=== PATIENT | male | born 1950 | race Caucasian/White ===

== ENCOUNTER 2019-01-11 11:18 | Outpatient (CLI) | payer OTHER, MEDICAID ==
[2019-01-11 12:26] LABS: BASOPHILS # (AUTO) 0.1 K/uL (0.0-0.2); MEAN CORPUSCULAR HEMOGLOBIN 30 pg (27-31); MONOCYTES # (AUTO) 0.4 K/uL (0.0-1.0); NEUTROPHILS # (AUTO) 3.3 K/uL (1.8-7.7)
[2019-01-11 12:41] LABS: BILIRUBIN,URINE NEGATIVE (NEGATIVE); CLARITY/URINE CLEAR (CLEAR); COLOR,URINE YELLOW (YELLOW); GLUCOSE,URINE NEGATIVE (NEGATIVE); KETONES,URINE NEGATIVE (NEGATIVE); LEUKOCYTE ESTERASE ,URINE NEGATIVE (NEGATIVE); NITRITE, URINE NEGATIVE (NEGATIVE); PROTEIN URINE NEGATIVE (NEGATIVE); UROBILINOGEN,URINE 0.2 (0.2-1.0)
[2019-01-11 12:48] LABS: BASOPHILS % (AUTO) 1.8 % (0.0-2.0); EOSINOPHILS # (AUTO) 0.6 K/uL (0.0-0.4); EOSINOPHILS % (AUTO) 8.3 % (0.0-4.0); HEMATOCRIT 38.5 % (36-54); HEMOGLOBIN 12.7 g/dL (14.0-18.0); LYMPHOCYTES # (AUTO) 2.4 K/uL (1.0-5.5); LYMPHOCYTES % (AUTO) 35.7 % (20.5-51.5); MEAN CORPUSCULAR HGB CONC 33 % (32-36); MEAN CORPUSCULAR VOLUME 90 fL (79.0-98.0); MONOCYTES % (AUTO) 6.1 % (1.7-9.3); NEUTROPHILS % (AUTO) 48.1 % (40.0-70.0); PLATELET COUNT (AUTO) 281 K/uL (130-430); RED BLOOD CELL COUNT(AUTO) 4.28 MIL/uL (4.2-6.2); RED CELL DISTRIBUTION WIDTH 14.1 % (9.0-15.0); WHITE BLOOD COUNT (AUTO) 6.8 K/uL (4.8-10.8)
[2019-01-11 12:51] LABS: BLOOD, URINE TRACE (NEGATIVE)
[2019-01-11 12:53] LABS: BACTERIA,URINE None Seen /HPF (None Seen); WBC,URINE 0-3 /HPF (0-3)
[2019-01-11 13:00] LABS: ALBUMIN 3.9 g/dL (3.4-4.8); CALCIUM 9.3 mg/dL (8.4-11.0); CREATININE 1.13 mg/dL (0.55-1.30); POTASSIUM 4.9 mmol/L (3.5-5.1); THYROID STIMULATING HORMONE 1.16 uIu/mL (0.34-4.82); TOTAL BILIRUBIN 0.5 mg/dL (0.0-1.0)
[2019-01-13 14:34] LABS: HEMOGLOBIN A1C 5.7 % (4.8-5.6)
== END 2019-01-11 20:38 | disposition home or self-care (01) ==
LOC: SLB 11:18
PROVIDERS: ATTEND Internal Medicine
DX: I11.9 Hypertensive heart disease without heart failure (principal); J44.9 Chronic obstructive pulmonary disease, unspecified; E55.9 Vitamin D deficiency, unspecified; Z79.899 Other long term (current) drug therapy; R97.20 Elevated prostate specific antigen [PSA]
CPT/HCPCS: 36415; 71046-TC; 80053; 80061; 81000-TC; 82306; 82607; 83036; 84153; 84443-TC; 85025; 93005; 93306

== ENCOUNTER 2019-01-12 12:42 | Outpatient (CLI) | payer OTHER, MEDICAID | END 2019-01-12 21:14 | disposition home or self-care (01) | LOC: SUS 12:42 | PROVIDERS: ATTEND Internal Medicine | DX: I73.9 Peripheral vascular disease, unspecified (principal) | CPT/HCPCS: 93923 ==

== ENCOUNTER 2019-02-22 11:22 | Outpatient (CLI) | payer OTHER, MEDICAID | END 2019-02-22 21:18 | disposition home or self-care (01) | LOC: SUS 11:22 | PROVIDERS: ATTEND Urology | DX: N43.2 Other hydrocele (principal); N50.3 Cyst of epididymis; N44.2 Benign cyst of testis; N40.1 Benign prostatic hyperplasia with lower urinary tract symptoms | CPT/HCPCS: 36415; 76870-TC; 84153; 87086 ==

== ENCOUNTER 2019-03-09 08:59 | Day surgery (SDC) | payer OTHER, MEDICAID ==
[2019-03-08 10:45] LABS: BASOPHILS % (AUTO) 0.2 % (0.0-2.0); EOSINOPHILS # (AUTO) 0.7 K/uL (0.0-0.4); EOSINOPHILS % (AUTO) 11.5 % (0.0-4.0); HEMATOCRIT 37.2 % (36-54); HEMOGLOBIN 12.6 g/dL (14.0-18.0); LYMPHOCYTES # (AUTO) 2.2 K/uL (1.0-5.5); LYMPHOCYTES % (AUTO) 35.9 % (20.5-51.5); MEAN CORPUSCULAR HEMOGLOBIN 30 pg (27-31); MEAN CORPUSCULAR HGB CONC 34 % (32-36); MEAN CORPUSCULAR VOLUME 90 fL (79.0-98.0); MONOCYTES # (AUTO) 0.4 K/uL (0.0-1.0); MONOCYTES % (AUTO) 6.4 % (1.7-9.3); NEUTROPHILS # (AUTO) 2.8 K/uL (1.8-7.7); PLATELET COUNT (AUTO) 276 K/uL (130-430); RED BLOOD CELL COUNT(AUTO) 4.13 MIL/uL (4.2-6.2); RED CELL DISTRIBUTION WIDTH 14.4 % (9.0-15.0); WHITE BLOOD COUNT (AUTO) 6.1 K/uL (4.8-10.8)
[2019-03-08 10:47] LABS: BILIRUBIN,URINE 1+ (NEGATIVE); BLOOD, URINE TRACE (NEGATIVE); CLARITY/URINE CLEAR (CLEAR); COLOR,URINE YELLOW (YELLOW); GLUCOSE,URINE NEGATIVE (NEGATIVE); KETONES,URINE TRACE (NEGATIVE); LEUKOCYTE ESTERASE ,URINE NEGATIVE (NEGATIVE); NITRITE, URINE NEGATIVE (NEGATIVE); PH,URINE 5.5 (5.0-8.0); PROTEIN URINE NEGATIVE (NEGATIVE); UROBILINOGEN,URINE 0.2 (0.2-1.0)
[2019-03-08 10:52] LABS: BACTERIA,URINE FEW /HPF (None Seen)
[2019-03-08 10:53] LABS: COARSE GRANULAR CASTS,URINE 0-10 /LPF (None Seen); HYALINE CASTS, URINE 0-10 /LPF (None Seen)
[2019-03-08 11:04] LABS: PROTHROMBIN TIME 9.9 SECS (9.5-12.5)
[2019-03-08 11:06] LABS: ALBUMIN 3.8 g/dL (3.4-4.8); CALCIUM 8.5 mg/dL (8.4-11.0); CREATININE 1.24 mg/dL (0.55-1.30); POTASSIUM 4.4 mmol/L (3.5-5.1); TOTAL BILIRUBIN 0.4 mg/dL (0.0-1.0)
[~2019-03-09] VITALS: Ht 175.3 cm; Wt 64.4 kg
[2019-03-09] MEDS ORDERED: BUPIVACAINE /PF 0.5% 30 ML VIAL INJ ONE (09:00)
[2019-03-09] MEDS ORDERED: LevALBUTEROL HCL 1.25 MG/0.5 ML *CONC.* VIAL.NEB (XOPENEX CONC.) INH ONE ×2 (09:45→10:18)
--- NOTE | 2019-03-09 10:05 | NUR ---
RT NOTES Pt. refused HHN tx despite education provided, HELDER Rm made aware, RN notified Dr Martinez.
[2019-03-09 12:36] VITALS: BP_SYST 143
== END 2019-03-09 12:30 | disposition home or self-care (01) ==
LOC: SDS 08:59 → SMU 09:00 → SDS 12:30
PROVIDERS: ATTEND Orthopaedic Surgery
DX: L72.0 Epidermal cyst (principal); L85.8 Other specified epidermal thickening; F17.200 Nicotine dependence, unspecified, uncomplicated; Z98.890 Other specified postprocedural states; Z79.01 Long term (current) use of anticoagulants; Z79.899 Other long term (current) drug therapy
CPT/HCPCS: 11421; 36415; 80053; 81000; 85025; 85610; 85730; 88305; J3490; J7612; 88304

== ENCOUNTER 2019-03-11 15:10 | Outpatient (CLI) | payer OTHER, MEDICAID | END 2019-03-11 21:05 | disposition home or self-care (01) | LOC: SCT 15:10 | PROVIDERS: ATTEND Internal Medicine | DX: R91.8 Other nonspecific abnormal finding of lung field (principal) | CPT/HCPCS: 71250-TC ==

== ENCOUNTER 2019-03-26 10:57 | Outpatient (CLI) | payer OTHER, MEDICAID | END 2019-03-26 14:00 | disposition home or self-care (01) | LOC: SRD 10:57 | PROVIDERS: ATTEND Internal Medicine | DX: Z09 Encounter for follow-up examination after completed treatment for conditions other than malignant neoplasm (principal); J18.9 Pneumonia, unspecified organism; J92.9 Pleural plaque without asbestos | CPT/HCPCS: 71046-TC ==

== ENCOUNTER 2020-09-05 09:59 | Outpatient (CLI) | payer OTHER, MEDICAID ==
[2020-09-05 10:46] LABS: BASOPHILS # (AUTO) 0.1 K/uL (0.0-0.2); EOSINOPHILS # (AUTO) 0.4 K/uL (0.0-0.4); EOSINOPHILS % (AUTO) 6.4 % (0.0-4.0); HEMATOCRIT 31.3 % (36-54); HEMOGLOBIN 10.3 g/dL (14.0-18.0); LYMPHOCYTES # (AUTO) 2.4 K/uL (1.0-5.5); LYMPHOCYTES % (AUTO) 42.2 % (20.5-51.5); MEAN CORPUSCULAR HEMOGLOBIN 27 pg (27-31); MEAN CORPUSCULAR HGB CONC 33 % (32-36); MEAN CORPUSCULAR VOLUME 82 fL (79.0-98.0); MONOCYTES # (AUTO) 0.4 K/uL (0.0-1.0); MONOCYTES % (AUTO) 7.7 % (1.7-9.3); NEUTROPHILS # (AUTO) 2.4 K/uL (1.8-7.7); NEUTROPHILS % (AUTO) 41.7 % (40.0-70.0); PLATELET COUNT (AUTO) 257 K/uL (130-430); RED BLOOD CELL COUNT(AUTO) 3.81 MIL/uL (4.2-6.2); RED CELL DISTRIBUTION WIDTH 14.9 % (9.0-15.0); WHITE BLOOD COUNT (AUTO) 5.7 K/uL (4.8-10.8)
[2020-09-05 11:22] LABS: ALANINE AMINOTRANSFERASE 32 U/L (12-78); ALBUMIN 3.8 g/dL (3.4-4.8); ANION GAP 4 (5-15); ASPARTATE AMINOTRANSFERASE 35 U/L (10-37); CALCIUM 8.8 mg/dL (8.4-11.0); CHLORIDE 105 mmol/L (98-107); CREATININE 1.05 mg/dL (0.55-1.30); GLUCOSE 94 mg/dL (70-99); POTASSIUM 4.7 mmol/L (3.5-5.1); SODIUM SERUM 140 mmol/L (136-145); THYROID STIMULATING HORMONE 2.49 uIu/mL (0.36-3.74); TOTAL BILIRUBIN 0.3 mg/dL (0.0-1.0); UREA NITROGEN, BLOOD 14 mg/dL (8-21)
[2020-09-05 11:38] LABS: BILIRUBIN,URINE NEGATIVE (NEGATIVE); CLARITY/URINE CLEAR (CLEAR); COLOR,URINE YELLOW (YELLOW); GLUCOSE,URINE NEGATIVE (NEGATIVE); KETONES,URINE NEGATIVE (NEGATIVE); LEUKOCYTE ESTERASE ,URINE NEGATIVE (NEGATIVE); NITRITE, URINE NEGATIVE (NEGATIVE); PROTEIN URINE NEGATIVE (NEGATIVE); UROBILINOGEN,URINE 0.2 (0.2-1.0)
[2020-09-05 11:39] LABS: BLOOD, URINE TRACE (NEGATIVE)
[2020-09-05 11:54] LABS: WBC,URINE 0-3 /HPF (0-3)
[2020-09-05 11:55] LABS: BACTERIA,URINE FEW /HPF (None Seen)
[2020-09-05 12:42] LABS: CHOLESTEROL 160 mg/dL (<200); HDL CHOLESTEROL 44 mg/dL (>45); LDL CHOLESTEROL 100 mg/dL (<100); TRIGLYCERIDES 105 mg/dL (30-150)
[2020-09-06 05:12] LABS: HEMOGLOBIN A1C 5.6 % (4.8-5.6)
== END 2020-09-05 20:54 | disposition home or self-care (01) ==
LOC: SLB 09:59
PROVIDERS: ATTEND Internal Medicine
DX: E55.9 Vitamin D deficiency, unspecified (principal); R73.9 Hyperglycemia, unspecified; I10 Essential (primary) hypertension; E56.9 Vitamin deficiency, unspecified; I70.90 Unspecified atherosclerosis; E78.5 Hyperlipidemia, unspecified; J44.9 Chronic obstructive pulmonary disease, unspecified; N40.1 Benign prostatic hyperplasia with lower urinary tract symptoms
CPT/HCPCS: 36415; 80053; 80061; 81000-TC; 82306; 82607; 83036; 84443-TC; 85025

== ENCOUNTER 2020-12-20 08:49 | Outpatient (CLI) | payer OTHER ==
[2020-12-20 09:21] LABS: BASOPHILS # (AUTO) 0.1 K/uL (0.0-0.2); BASOPHILS % (AUTO) 1.7 % (0.0-2.0); EOSINOPHILS # (AUTO) 0.5 K/uL (0.0-0.4); EOSINOPHILS % (AUTO) 7.6 % (0.0-4.0); HEMATOCRIT 34.3 % (36-54); HEMOGLOBIN 11.5 g/dL (14.0-18.0); LYMPHOCYTES # (AUTO) 2.8 K/uL (1.0-5.5); LYMPHOCYTES % (AUTO) 42.9 % (20.5-51.5); MEAN CORPUSCULAR HEMOGLOBIN 28 pg (27-31); MEAN CORPUSCULAR HGB CONC 34 % (32-36); MEAN CORPUSCULAR VOLUME 83 fL (79.0-98.0); MONOCYTES # (AUTO) 0.4 K/uL (0.0-1.0); MONOCYTES % (AUTO) 6.4 % (1.7-9.3); NEUTROPHILS # (AUTO) 2.7 K/uL (1.8-7.7); NEUTROPHILS % (AUTO) 41.4 % (40.0-70.0); PLATELET COUNT (AUTO) 262 K/uL (130-430); RED BLOOD CELL COUNT(AUTO) 4.12 MIL/uL (4.2-6.2); RED CELL DISTRIBUTION WIDTH 16.4 % (9.0-15.0); WHITE BLOOD COUNT (AUTO) 6.6 K/uL (4.8-10.8)
[2020-12-20 09:39] LABS: ANION GAP 6 (5-15); CALCIUM 8.6 mg/dL (8.4-11.0); CHLORIDE 109 mmol/L (98-107); CREATININE 1.18 mg/dL (0.55-1.30); GLUCOSE 90 mg/dL (70-99); POTASSIUM 4.3 mmol/L (3.5-5.1); SODIUM SERUM 145 mmol/L (136-145); UREA NITROGEN, BLOOD 17 mg/dL (8-21)
== END 2020-12-20 20:32 | disposition home or self-care (01) ==
LOC: SLB 08:49
PROVIDERS: ATTEND Internal Medicine
DX: K92.2 Gastrointestinal hemorrhage, unspecified (principal); D64.9 Anemia, unspecified
CPT/HCPCS: 36415; 80048; 85025

== ENCOUNTER 2021-08-05 11:17 | Outpatient (CLI) | payer OTHER, MEDICAID ==
[2021-08-05 12:44] LABS: BASOPHILS # (AUTO) 0.1 K/uL (0.0-0.2); BASOPHILS % (AUTO) 1.2 % (0.0-2.0); EOSINOPHILS # (AUTO) 0.2 K/uL (0.0-0.4); EOSINOPHILS % (AUTO) 4.7 % (0.0-4.0); HEMATOCRIT 37.6 % (36-54); HEMOGLOBIN 12.5 g/dL (14.0-18.0); LYMPHOCYTES # (AUTO) 2.1 K/uL (1.0-5.5); LYMPHOCYTES % (AUTO) 43.7 % (20.5-51.5); MEAN CORPUSCULAR HEMOGLOBIN 30 pg (27-31); MEAN CORPUSCULAR HGB CONC 33 % (32-36); MEAN CORPUSCULAR VOLUME 89 fL (79.0-98.0); MONOCYTES # (AUTO) 0.3 K/uL (0.0-1.0); MONOCYTES % (AUTO) 5.8 % (1.7-9.3); NEUTROPHILS # (AUTO) 2.2 K/uL (1.8-7.7); NEUTROPHILS % (AUTO) 44.6 % (40.0-70.0); PLATELET COUNT (AUTO) 241 K/uL (130-430); RED BLOOD CELL COUNT(AUTO) 4.23 MIL/uL (4.2-6.2); WHITE BLOOD COUNT (AUTO) 4.9 K/uL (4.8-10.8)
[2021-08-05 12:46] LABS: BILIRUBIN,URINE NEGATIVE (NEGATIVE); CLARITY/URINE CLEAR (CLEAR); COLOR,URINE YELLOW (YELLOW); GLUCOSE,URINE NEGATIVE (NEGATIVE); KETONES,URINE NEGATIVE (NEGATIVE); LEUKOCYTE ESTERASE ,URINE NEGATIVE (NEGATIVE); NITRITE, URINE NEGATIVE (NEGATIVE); PROTEIN URINE NEGATIVE (NEGATIVE); UROBILINOGEN,URINE 0.2 (0.2-1.0)
[2021-08-05 12:48] LABS: BLOOD, URINE TRACE (NEGATIVE)
[2021-08-05 12:55] LABS: BACTERIA,URINE RARE /HPF (None Seen); WBC,URINE NONE SEEN /HPF (0-3)
[2021-08-05 13:14] LABS: CHOLESTEROL 149 mg/dL (<200); HDL CHOLESTEROL 50 mg/dL (>45); LDL CHOLESTEROL 78 mg/dL (<100); TRIGLYCERIDES 61 mg/dL (30-150)
[2021-08-05 13:16] LABS: ALANINE AMINOTRANSFERASE 29 U/L (12-78); ALBUMIN 3.8 g/dL (3.4-4.8); ANION GAP 5 (5-15); ASPARTATE AMINOTRANSFERASE 28 U/L (10-37); CALCIUM 8.7 mg/dL (8.4-11.0); CHLORIDE 104 mmol/L (98-107); CREATININE 0.98 mg/dL (0.55-1.30); GLUCOSE 103 mg/dL (70-99); POTASSIUM 5.3 mmol/L (3.5-5.1); SODIUM SERUM 139 mmol/L (136-145); THYROID STIMULATING HORMONE 2.14 uIu/mL (0.36-3.74); TOTAL BILIRUBIN 0.4 mg/dL (0.0-1.0); UREA NITROGEN, BLOOD 15 mg/dL (8-21)
[2021-08-05 13:36] LABS: ERYTHROCYTE SEDIMENTATION RATE 9 MM/HR (0-15)
[2021-08-06 04:06] LABS: HEMOGLOBIN A1C 5.5 % (4.8-5.6)
[2021-08-06 08:06] LABS: PROSTATE SPECIFIC AG 2.5 ng/mL (0.0-4.0)
== END 2021-08-05 20:10 | disposition home or self-care (01) ==
LOC: SLB 11:17
PROVIDERS: ATTEND Internal Medicine
DX: I10 Essential (primary) hypertension (principal); E78.5 Hyperlipidemia, unspecified; G89.4 Chronic pain syndrome; N40.1 Benign prostatic hyperplasia with lower urinary tract symptoms; D64.9 Anemia, unspecified; J43.9 Emphysema, unspecified; Z79.899 Other long term (current) drug therapy
CPT/HCPCS: 36415; 80053; 80061; 81000; 82306; 82607; 83036; 83540; 83735; 84153; 84443; 85025; 85651-TC

== ENCOUNTER 2021-08-06 09:55 | Outpatient (CLI) | payer OTHER, MEDICAID | END 2021-08-06 20:13 | disposition home or self-care (01) | LOC: SCT 09:55 | PROVIDERS: ATTEND Internal Medicine | DX: I34.0 Nonrheumatic mitral (valve) insufficiency (principal); I51.7 Cardiomegaly; R94.31 Abnormal electrocardiogram [ECG] [EKG]; I77.810 Thoracic aortic ectasia; I70.90 Unspecified atherosclerosis; M47.814 Spondylosis without myelopathy or radiculopathy, thoracic region | CPT/HCPCS: 71250-TC; 76376; 93005; 93306 ==

== ENCOUNTER 2021-11-11 10:56 | Outpatient (CLI) | payer OTHER ==
[2021-11-11 12:11] LABS: ANION GAP 9 (5-15); CALCIUM 9.3 mg/dL (8.4-11.0); CHLORIDE 103 mmol/L (98-107); CREATININE 1.17 mg/dL (0.55-1.30); GLUCOSE 94 mg/dL (70-99); POTASSIUM 4.7 mmol/L (3.5-5.1); SODIUM SERUM 140 mmol/L (136-145); UREA NITROGEN, BLOOD 15 mg/dL (8-21)
== END 2021-11-11 21:15 | disposition home or self-care (01) ==
LOC: SLB 10:56
DX: N40.1 Benign prostatic hyperplasia with lower urinary tract symptoms (principal); R31.29 Other microscopic hematuria
CPT/HCPCS: 36415; 80048; 84153

== ENCOUNTER 2021-11-12 09:59 | Outpatient (CLI) | payer OTHER | END 2021-11-12 20:11 | disposition home or self-care (01) | LOC: SCT 09:59 | PROVIDERS: ATTEND Urology | DX: N28.1 Cyst of kidney, acquired (principal); N40.1 Benign prostatic hyperplasia with lower urinary tract symptoms; N32.89 Other specified disorders of bladder; M47.819 Spondylosis without myelopathy or radiculopathy, site unspecified; I70.90 Unspecified atherosclerosis; R31.29 Other microscopic hematuria | CPT/HCPCS: 74178; 76376; Q9967 ==

== ENCOUNTER 2022-04-07 12:16 | Outpatient (CLI) | payer OTHER ==
[2022-04-07 13:01] LABS: BASOPHILS # (AUTO) 0.1 K/uL (0.0-0.2); BASOPHILS % (AUTO) 1.2 % (0.0-2.0); EOSINOPHILS # (AUTO) 0.4 K/uL (0.0-0.4); EOSINOPHILS % (AUTO) 5.3 % (0.0-4.0); HEMATOCRIT 37.1 % (36-54); LYMPHOCYTES % (AUTO) 28.1 % (20.5-51.5); MEAN CORPUSCULAR VOLUME 88 fL (79.0-98.0); MONOCYTES # (AUTO) 0.4 K/uL (0.0-1.0); MONOCYTES % (AUTO) 6.1 % (1.7-9.3); NEUTROPHILS # (AUTO) 4.1 K/uL (1.8-7.7); NEUTROPHILS % (AUTO) 59.3 % (40.0-70.0); PLATELET COUNT (AUTO) 255 K/uL (130-430); RED CELL DISTRIBUTION WIDTH 13.5 % (9.0-15.0); WHITE BLOOD COUNT (AUTO) 6.9 K/uL (4.8-10.8)
[2022-04-07 13:36] LABS: ALANINE AMINOTRANSFERASE 33 U/L (12-78); ALBUMIN 3.8 g/dL (3.4-4.8); ANION GAP 3 (5-15); ASPARTATE AMINOTRANSFERASE 36 U/L (10-37); CALCIUM 9.3 mg/dL (8.4-11.0); CHLORIDE 102 mmol/L (98-107); GLUCOSE 104 mg/dL (70-99); POTASSIUM 4.6 mmol/L (3.5-5.1); SODIUM SERUM 139 mmol/L (136-145); THYROID STIMULATING HORMONE 2.43 uIu/mL (0.36-3.74); TOTAL BILIRUBIN 0.7 mg/dL (0.0-1.0); UREA NITROGEN, BLOOD 16 mg/dL (8-21)
[2022-04-07 14:30] LABS: CHOLESTEROL 150 mg/dL (<200); HDL CHOLESTEROL 54 mg/dL (>45); LDL CHOLESTEROL 89 mg/dL (<100); TRIGLYCERIDES 80 mg/dL (30-150)
[2022-04-08 06:06] LABS: HEMOGLOBIN A1C 5.5 % (4.8-5.6)
== END 2022-04-07 18:38 | disposition home or self-care (01) ==
LOC: SLB 12:16
PROVIDERS: ATTEND Internal Medicine
DX: I10 Essential (primary) hypertension (principal); E78.5 Hyperlipidemia, unspecified; N40.1 Benign prostatic hyperplasia with lower urinary tract symptoms; D64.9 Anemia, unspecified; R73.9 Hyperglycemia, unspecified; E55.9 Vitamin D deficiency, unspecified; E56.9 Vitamin deficiency, unspecified
CPT/HCPCS: 36415; 80053; 80061; 82306; 82607; 83036; 84443; 85025

== ENCOUNTER → 2023-02-10 | Outpatient (CLI) | payer OTHER, MEDICAID ==
[2023-02-10 10:54] LABS: ERYTHROCYTE SEDIMENTATION RATE 8 MM/HR (0-15)
[2023-02-10 10:57] LABS: BASOPHILS # (AUTO) 0.1 K/uL (0.0-0.2); BASOPHILS % (AUTO) 1.6 % (0.0-2.0); EOSINOPHILS # (AUTO) 0.4 K/uL (0.0-0.4); EOSINOPHILS % (AUTO) 7.9 % (0.0-4.0); HEMATOCRIT 38.6 % (36-54); HEMOGLOBIN 12.8 g/dL (14.0-18.0); LYMPHOCYTES # (AUTO) 2.3 K/uL (1.0-5.5); LYMPHOCYTES % (AUTO) 44.1 % (20.5-51.5); MEAN CORPUSCULAR HEMOGLOBIN 29 pg (27-31); MEAN CORPUSCULAR HGB CONC 33 % (32-36); MEAN CORPUSCULAR VOLUME 88 fL (79.0-98.0); MONOCYTES # (AUTO) 0.3 K/uL (0.0-1.0); MONOCYTES % (AUTO) 5.8 % (1.7-9.3); NEUTROPHILS # (AUTO) 2.1 K/uL (1.8-7.7); NEUTROPHILS % (AUTO) 40.6 % (40.0-70.0); PLATELET COUNT (AUTO) 312 K/uL (130-430); RED BLOOD CELL COUNT(AUTO) 4.39 MIL/uL (4.2-6.2); RED CELL DISTRIBUTION WIDTH 14.4 % (9.0-15.0); WHITE BLOOD COUNT (AUTO) 5.2 K/uL (4.8-10.8)
[2023-02-10 11:02] LABS: BLOOD, URINE NEGATIVE (NEGATIVE); COLOR,URINE YELLOW (YELLOW); GLUCOSE,URINE NEGATIVE (NEGATIVE); KETONES,URINE 1+ (NEGATIVE); LEUKOCYTE ESTERASE ,URINE NEGATIVE (NEGATIVE); NITRITE, URINE NEGATIVE (NEGATIVE); PH,URINE 6.5 (5.0-8.0); PROTEIN URINE TRACE (NEGATIVE)
[2023-02-10 11:08] LABS: BILIRUBIN,URINE NEGATIVE (NEGATIVE); CLARITY/URINE SLIGHTLY HAZY (CLEAR)
[2023-02-10 11:11] LABS: BACTERIA,URINE RARE /HPF (None Seen); RBC,URINE 0-3 /HPF (0-3); WBC,URINE NONE SEEN /HPF (0-3)
[2023-02-10 11:26] LABS: ALANINE AMINOTRANSFERASE 17 U/L (12-78); ALBUMIN 3.8 g/dL (3.4-4.8); ANION GAP 7 (5-15); ASPARTATE AMINOTRANSFERASE 30 U/L (10-37); CALCIUM 8.8 mg/dL (8.4-11.0); CHLORIDE 103 mmol/L (98-107); CHOLESTEROL 153 mg/dL (<200); CREATININE 0.99 mg/dL (0.55-1.30); GLUCOSE 110 mg/dL (74-106); HDL CHOLESTEROL 54 mg/dL (>45); THYROID STIMULATING HORMONE 1.69 uIu/mL (0.34-4.82); TOTAL BILIRUBIN 0.5 mg/dL (0.0-1.0); TRIGLYCERIDES 53 mg/dL (30-150); UREA NITROGEN, BLOOD 18 mg/dL (8-21)
[2023-02-11 11:12] LABS: PROSTATE SPECIFIC AG 0.5 ng/mL (0.0-4.0)
== END | disposition home or self-care (01) ==
LOC: SLB 10:19
PROVIDERS: ATTEND Internal Medicine
DX: R91.1 Solitary pulmonary nodule (principal); I10 Essential (primary) hypertension; E78.5 Hyperlipidemia, unspecified; N40.1 Benign prostatic hyperplasia with lower urinary tract symptoms; E55.9 Vitamin D deficiency, unspecified; R73.9 Hyperglycemia, unspecified; N28.89 Other specified disorders of kidney and ureter; M47.814 Spondylosis without myelopathy or radiculopathy, thoracic region
CPT/HCPCS: 36415; 71250-TC; 76376; 80053; 80061; 81000; 82306; 82607; 83037; 84153; 84443; 85025; 85651-TC

== ENCOUNTER 2023-09-03 10:04 | Outpatient (CLI) | payer OTHER ==
[2023-09-03 11:59] LABS: BILIRUBIN,URINE NEGATIVE (NEGATIVE); BLOOD, URINE NEGATIVE (NEGATIVE); CLARITY/URINE CLEAR (CLEAR); COLOR,URINE YELLOW (YELLOW); GLUCOSE,URINE NEGATIVE (NEGATIVE); KETONES,URINE NEGATIVE (NEGATIVE); LEUKOCYTE ESTERASE ,URINE NEGATIVE (NEGATIVE); NITRITE, URINE NEGATIVE (NEGATIVE); PROTEIN URINE NEGATIVE (NEGATIVE); UROBILINOGEN,URINE 0.2 (0.2-1.0)
[2023-09-03 12:03] LABS: BASOPHILS # (AUTO) 0.1 K/uL (0.0-0.2); BASOPHILS % (AUTO) 1.4 % (0.0-2.0); EOSINOPHILS # (AUTO) 0.2 K/uL (0.0-0.4); EOSINOPHILS % (AUTO) 4.2 % (0.0-4.0); HEMOGLOBIN 13.2 g/dL (14.0-18.0); LYMPHOCYTES # (AUTO) 1.5 K/uL (1.0-5.5); LYMPHOCYTES % (AUTO) 30.2 % (20.5-51.5); MEAN CORPUSCULAR HEMOGLOBIN 31 pg (27-31); MEAN CORPUSCULAR HGB CONC 34 % (32-36); MEAN CORPUSCULAR VOLUME 91 fL (79.0-98.0); MONOCYTES # (AUTO) 0.3 K/uL (0.0-1.0); MONOCYTES % (AUTO) 5.7 % (1.7-9.3); NEUTROPHILS # (AUTO) 2.8 K/uL (1.8-7.7); NEUTROPHILS % (AUTO) 58.5 % (40.0-70.0); PLATELET COUNT (AUTO) 276 K/uL (130-430); RED BLOOD CELL COUNT(AUTO) 4.29 MIL/uL (4.2-6.2); RED CELL DISTRIBUTION WIDTH 13.9 % (9.0-15.0); WHITE BLOOD COUNT (AUTO) 4.9 K/uL (4.8-10.8)
[2023-09-03 12:36] LABS: ALANINE AMINOTRANSFERASE 35 U/L (12-78); ALBUMIN 3.9 g/dL (3.4-4.8); ANION GAP 8 (5-15); ASPARTATE AMINOTRANSFERASE 36 U/L (10-37); CALCIUM 9.1 mg/dL (8.4-11.0); CARBON DIOXIDE 31 mmol/L (23-29); CHLORIDE 104 mmol/L (98-107); CHOLESTEROL 146 mg/dL (<200); GLUCOSE 106 mg/dL (74-106); HDL CHOLESTEROL 62 mg/dL (>45); POTASSIUM 4.5 mmol/L (3.5-5.1); SODIUM SERUM 143 mmol/L (136-145); THYROID STIMULATING HORMONE 1.78 uIu/mL (0.34-4.82); TOTAL BILIRUBIN 0.7 mg/dL (0.0-1.0); TOTAL PROTEIN, SERUM 7.1 g/dL (6.4-8.3); TRIGLYCERIDES 57 mg/dL (30-150); UREA NITROGEN, BLOOD 19 mg/dL (8-21)
[2023-09-03 12:55] LABS: HEMOGLOBIN A1C 5.63 % (<5.7)
== END 2023-09-03 20:44 | disposition home or self-care (01) ==
LOC: SLB 10:04
PROVIDERS: ATTEND Internal Medicine
DX: I10 Essential (primary) hypertension (principal); I70.90 Unspecified atherosclerosis; E78.5 Hyperlipidemia, unspecified; J44.9 Chronic obstructive pulmonary disease, unspecified; D64.9 Anemia, unspecified; N40.1 Benign prostatic hyperplasia with lower urinary tract symptoms; Z79.899 Other long term (current) drug therapy
CPT/HCPCS: 36415; 80053; 80061; 81001; 81003; 82306; 83037; 84153; 84443; 85025

== ENCOUNTER 2023-10-06 10:58 | Outpatient (CLI) | payer OTHER | END 2023-10-06 21:09 | disposition home or self-care (01) | LOC: SCT 10:58 | PROVIDERS: ATTEND Internal Medicine Critical Care Medicine | DX: J92.9 Pleural plaque without asbestos (principal); J44.9 Chronic obstructive pulmonary disease, unspecified; I70.90 Unspecified atherosclerosis | CPT/HCPCS: 71250-TC ==

== ENCOUNTER 2023-12-13 19:59 | Emergency (ER) | payer OTHER ==
[~2023-12-13] VITALS: Ht 180.3 cm; Wt 61.2 kg
[2023-12-13 20:10] VITALS: BP_SYST 140; PULSE 77; RESP 17; TEMP 97.1; O2SAT 96
[2023-12-13 20:23] VITALS: BP_SYST 140; PULSE 77; RESP 17; TEMP 97.1; O2SAT 96
[2023-12-13] MEDS: DIPHTH,PERTUSS(ACELL),TET VAC 0.5 ML VIAL (Tdap) I.M. ONE (20:54)
== END 2023-12-13 20:58 | disposition home or self-care (01) ==
LOC: SED 19:59
DX: S61.412A Laceration without foreign body of left hand, initial encounter (principal); W26.0XXA Contact with knife, initial encounter; Y93.89 Activity, other specified; Y92.89 Other specified places as the place of occurrence of the external cause; Y99.8 Other external cause status
CPT/HCPCS: 90715; 99283

== ENCOUNTER 2024-02-15 09:04 | Outpatient (CLI) | payer OTHER ==
[2024-02-15 09:46] LABS: BASOPHILS # (AUTO) 0.1 K/uL (0.0-0.2); BASOPHILS % (AUTO) 1.3 % (0.0-2.0); EOSINOPHILS # (AUTO) 0.2 K/uL (0.0-0.4); EOSINOPHILS % (AUTO) 4.9 % (0.0-4.0); HEMATOCRIT 38.2 % (36-54); HEMOGLOBIN 12.8 g/dL (14.0-18.0); LYMPHOCYTES # (AUTO) 1.8 K/uL (1.0-5.5); LYMPHOCYTES % (AUTO) 37.4 % (20.5-51.5); MEAN CORPUSCULAR HEMOGLOBIN 30 pg (27-31); MEAN CORPUSCULAR HGB CONC 34 % (32-36); MEAN CORPUSCULAR VOLUME 91 fL (79.0-98.0); MONOCYTES # (AUTO) 0.2 K/uL (0.0-1.0); MONOCYTES % (AUTO) 4.9 % (1.7-9.3); NEUTROPHILS # (AUTO) 2.5 K/uL (1.8-7.7); NEUTROPHILS % (AUTO) 51.5 % (40.0-70.0); PLATELET COUNT (AUTO) 260 K/uL (130-430); RED BLOOD CELL COUNT(AUTO) 4.21 MIL/uL (4.2-6.2); RED CELL DISTRIBUTION WIDTH 13.7 % (9.0-15.0); WHITE BLOOD COUNT (AUTO) 4.8 K/uL (4.8-10.8)
[2024-02-15 10:03] LABS: ERYTHROCYTE SEDIMENTATION RATE 1 MM/HR (0-15)
[2024-02-15 10:07] LABS: TOTAL IRON BIND. CAPACITY 303 ug/dL (250-450)
[2024-02-15 10:30] LABS: ALANINE AMINOTRANSFERASE 22 U/L (12-78); ALBUMIN 3.8 g/dL (3.4-4.8); ANION GAP 5 (5-15); ASPARTATE AMINOTRANSFERASE 28 U/L (10-37); CALCIUM 8.8 mg/dL (8.4-11.0); CARBON DIOXIDE 32 mmol/L (23-29); CHLORIDE 103 mmol/L (98-107); CHOLESTEROL 144 mg/dL (<200); CREATININE 0.92 mg/dL (0.55-1.30); GLUCOSE 106 mg/dL (74-106); HDL CHOLESTEROL 56 mg/dL (>45); POTASSIUM 4.2 mmol/L (3.5-5.1); SODIUM SERUM 140 mmol/L (136-145); THYROID STIMULATING HORMONE 2.21 uIu/mL (0.34-4.82); TOTAL BILIRUBIN 0.9 mg/dL (0.0-1.0); TOTAL PROTEIN, SERUM 6.9 g/dL (6.4-8.3); TRIGLYCERIDES 48 mg/dL (30-150); UREA NITROGEN, BLOOD 20 mg/dL (8-21)
[2024-02-16 06:12] LABS: PROSTATE SPECIFIC AG 0.5 ng/mL (0.0-4.0)
== END 2024-02-15 18:55 | disposition home or self-care (01) ==
LOC: SLB 09:04
PROVIDERS: ATTEND Internal Medicine
DX: I10 Essential (primary) hypertension (principal); D64.9 Anemia, unspecified; N40.1 Benign prostatic hyperplasia with lower urinary tract symptoms; E78.5 Hyperlipidemia, unspecified; E56.9 Vitamin deficiency, unspecified; E55.9 Vitamin D deficiency, unspecified
CPT/HCPCS: 36415; 80053; 80061; 82607; 83540; 83550; 84153; 84439; 84443; 85025; 85651

== ENCOUNTER 2024-02-16 09:55 | Outpatient (CLI) | payer OTHER ==
[2024-02-16] MEDS ORDERED: DIATR MEGLU/DIATRIZ SOD 30 ML SOLUTION PO ONE (10:34)
== END 2024-02-16 21:17 | disposition home or self-care (01) ==
LOC: SRD 09:55
PROVIDERS: ATTEND Internal Medicine
DX: N28.1 Cyst of kidney, acquired (principal); K59.09 Other constipation; M47.816 Spondylosis without myelopathy or radiculopathy, lumbar region; I70.0 Atherosclerosis of aorta
CPT/HCPCS: 74177; Q9967; Q9964

== ENCOUNTER 2024-02-22 13:10 | Outpatient (CLI) | payer OTHER | END 2024-02-22 19:42 | disposition home or self-care (01) | LOC: SMI 13:10 | PROVIDERS: ATTEND Internal Medicine | DX: M47.816 Spondylosis without myelopathy or radiculopathy, lumbar region (principal); M48.061 Spinal stenosis, lumbar region without neurogenic claudication; M54.30 Sciatica, unspecified side; N28.1 Cyst of kidney, acquired; M51.37 Other intervertebral disc degeneration, lumbosacral region | CPT/HCPCS: 72148 ==